=== PATIENT | female | born 2000 | race Two or more races ===

== ENCOUNTER 2018-04-21 06:36 | Inpatient (IN) | payer SELFPAY ==
[~2018-04-21] VITALS: Ht 165.1 cm; Wt 94.0 kg
[2018-04-21] MEDS ORDERED: SODIUM CHLORIDE 0.9% 1,000 ML IVB ONE (07:42)
[2018-04-21] MEDS ORDERED: METOCLOPRAMIDE HCL 5MG/ml INJ 2ml VIAL IV ONE (07:45)
[2018-04-21] MEDS ORDERED: KETOROLAC TROMETH 30 MG/ML 1ML VIAL IV ONE (07:45)
[2018-04-21 07:53] LABS: Basophils # (auto) 0 uL; Basophils % (auto) 0.3 % (0.0-2.0); Eosinophils # (auto) 0 uL; Eosinophils % (auto) 0.1 % (0.0-7.0); Hematocrit 41.8 % (36.0-46.0); Hemoglobin 14.1 g/dL (12.2-16.2); Lymphocytes # (auto) 1.4 uL; Lymphocytes % (auto) 9.4 % (10.0-50.0); Mean Corpuscular Hemoglobin 29.5 pg (28.0-32.0); Mean Corpuscular Hgb Conc. 33.6 g/dL (32.0-36.0); Mean Corpuscular Volume 87.8 fL (80.0-100.0); Monocytes # (auto) 0.6 uL; Monocytes % (auto) 4.4 % (0.0-12.0); Neutrophils # (auto) 12.4 uL; Neutrophils % (auto) 85.8 % (37.0-80.0); Platelet Count (auto) 296 10^3/uL (140-450); Red Blood Cells 4.76 10^6/uL (4.0-5.20); Red Cell Distribution Width 13.5 % (11.8-14.3); White Blood Cell 14.5 10^3/uL (4.4-10.8)
[2018-04-21 08:07] LABS: Alanine Aminotransferase 18 U/L (13-56); Albumin 3.9 g/dL (3.4-5.0); Anion Gap 8 (5-15); Blood Urea Nitrogen 10 mg/dL (7-18); Calcium 9.1 mg/dL (8.5-10.1); Carbon Dioxide 22 mmol/L (21-32); Chloride 108 mmol/L (98-107); Glucose 142 mg/dL (74-106); Potassium 3.2 mmol/L (3.5-5.1); Sodium 138 mmol/L (136-145)
[2018-04-21 08:10] LABS: Alkaline Phosphatase 88 U/L (45-117); Aspartate Aminotransferase 11 U/L (15-37); BUN/Creatinine Ratio 10.4; Bilirubin, Total 0.7 mg/dL (0.2-1.0); GFR African American > 60 mL/min; GFR Non-African American > 60 mL/min
[2018-04-21 10:28] LABS: Urine Bacteria NONE SEEN /hpf (None Seen); Urine Blood 3+ /uL (Negative); Urine Mucus FEW (None Seen); Urine WBC 92 /hpf (0 - 5)
[2018-04-21] MEDS ORDERED: cefTRIAXone 1GM/50ML D5W 50 ML IV ONE (10:45)
[2018-04-21] MEDS ORDERED: POTASSIUM EFFERVESENT TAB 25 MEQ PO ONE (12:45)
[2018-04-21] MEDS ORDERED: MORPHINE SULFATE 10 MG/ML INJ 1ML SDV IV ONE (12:45)
[2018-04-21] MEDS ORDERED: PROMETHAZINE HCL 25 MG/ML 1ML IV ONE (12:45)
[2018-04-21] MEDS ORDERED: LORazepam 0.5 MG TAB PO PRN (14:15)
[2018-04-21] MEDS ORDERED: traMADol HCL 50 MG TAB PO PRN (14:15)
[2018-04-21] MEDS ORDERED: NITROGLYCERIN 0.4 MG SL TAB SL PRN (14:15)
[2018-04-21] MEDS ORDERED: MORPHINE SULFATE 10 MG/ML INJ 1ML SDV IV PRN (14:15)
[2018-04-21] MEDS ORDERED: TEMAZEPAM 15 MG CAP PO PRN (14:15)
[2018-04-21] MEDS: SODIUM CHLORIDE 0.9% 1,000 ML IV SCH (14:21)
[2018-04-21] MEDS: FAMOTIDINE (10MG/ML) 2ML VL IV SCH (14:22)
--- NOTE | 2018-04-21 17:30 | NUR ---
Telemetry admit from [facility] admitted to Telemetry unit after SBAR received. Patient oriented to Katiana Doty RN primary RN, unit, room, bed, and unit policies regarding patient care and visiting hours. Patient now on continuous telemetry monitoring, tele box # [id number] and telemetry reading on arrival to unit is . Patient placed on bedside oxygen, weighed by bedscale and encouraged to call if they need something. All questions and concerns addressed, patient verbalized understanding.
--- NOTE | 2018-04-21 17:45 | NUR ---
COOLING MEASURES DONE.
[2018-04-21] MEDS: ACETAMINOPHEN 500 MG TAB PO PRN (17:48)
[2018-04-21 17:57] VITALS: BP 107/49
--- NOTE | 2018-04-21 19:30 | NUR ---
Opening Shift Note Assumed care of patient, awake and alert. Family member at bedside. No S/S of distress/SOB or pain. Instructed on POC and to call for assist PRN, will continue to monitor for changes Q1hr and PRN. Bed locked and in lowest position. Per report pt running temp, recheck 102.5, cooling measures still continued, Educated pt that ice packs must be maintained due to fever, will be uncomfortable but need to be kept on in order to lower temp. Will continue to monitor temp. Patient currently has temp of 102.0 , cooling measures in place.
[2018-04-21] MEDS: KETOROLAC TROMETH 30 MG/ML 1ML VIAL IV PRN (20:07)
--- NOTE | 2018-04-21 21:46 | NUR ---
PT ROUNDS COOLING MEASURES CONTINUED Applied new cold washcloth on head, will continue to monitor pt.
[2018-04-21 22:00] VITALS: BP 104/48
--- NOTE | 2018-04-21 23:02 | NUR ---
PT ROUNDS Reassess temp Pt temp 99.8 , cooling measures still applied. emptied 1100 ml of urine, yellow, clear will continue to monitor pt.
[2018-04-22] MEDS: SODIUM CHLORIDE 0.9% 1,000 ML IV SCH ×4 (00:03→21:24)
[2018-04-22] MEDS: ACETAMINOPHEN 500 MG TAB PO PRN ×4 (00:05→21:25)
--- NOTE | 2018-04-22 01:40 | NUR ---
PT rounds Cooling Measures applied. Patient currently has temp of 102.8 , cooling measures in place. Reinforced to pt that must keep ice packs in place and to not remove, need to lower temp. No blankets are to be placed on especially thermal ones.
[2018-04-22] MEDS: FAMOTIDINE (10MG/ML) 2ML VL IV SCH ×2 (02:21→13:57)
--- NOTE | 2018-04-22 02:33 | NUR ---
PT ROUNDS Refilled ice packs with new ice, new cold wash cloth placed , will continue to monitor pt.
[2018-04-22 05:30] VITALS: BP 110/56
[2018-04-22] MEDS: PROMETHAZINE HCL 25 MG/ML 1ML IV PRN ×3 (06:27→19:21)
--- NOTE | 2018-04-22 06:35 | NUR ---
PT ROUNDS Cooling Measures applied. Patient currently has temp of 102.2 , cooling measures in place. New washcloths in place and ice packs placed in core areas. Reinforced with pt importance of keeping ice packs and washcloths in place and to avoid covering up. Need to try and lower temp down and with adding blankets and removing ice packs will intervene with lowering temperature. will continue to monitor and endorse to day RN
[2018-04-22 07:16] LABS: Basophils # (auto) 0 uL; Basophils % (auto) 0.1 % (0.0-2.0); Eosinophils # (auto) 0 uL; Hematocrit 37.9 % (36.0-46.0); Hemoglobin 12.4 g/dL (12.2-16.2); Lymphocytes # (auto) 0.5 uL; Lymphocytes % (auto) 2.7 % (10.0-50.0); Mean Corpuscular Hemoglobin 29.3 pg (28.0-32.0); Mean Corpuscular Hgb Conc. 32.7 g/dL (32.0-36.0); Mean Corpuscular Volume 89.7 fL (80.0-100.0); Monocytes # (auto) 0.6 uL; Monocytes % (auto) 2.9 % (0.0-12.0); Neutrophils # (auto) 18.4 uL; Neutrophils % (auto) 94.3 % (37.0-80.0); Platelet Count (auto) 163 10^3/uL (140-450); Red Blood Cells 4.23 10^6/uL (4.0-5.20); Red Cell Distribution Width 13.8 % (11.8-14.3); White Blood Cell 19.5 10^3/uL (4.4-10.8)
--- NOTE | 2018-04-22 07:30 | NUR ---
Opening Shift Note Assumed care of patient, awake and alert. No S/S of distress/SOB or pain. Instructed on POC and to call for assist at all times, will continue to monitor for changes Q1hr and PRN. encourage to increase fluid intake. cooling measures applied. patient is verbalizing of not having that much appetite to eat, educated further on importance of proper nourishment
[2018-04-22 07:40] LABS: Alanine Aminotransferase 14 U/L (13-56); Albumin 2.7 g/dL (3.4-5.0); Anion Gap 11 (5-15); Aspartate Aminotransferase 14 U/L (15-37); BUN/Creatinine Ratio 7.9; Blood Urea Nitrogen 9 mg/dL (7-18); Calcium 7.5 mg/dL (8.5-10.1); Carbon Dioxide 17 mmol/L (21-32); Chloride 108 mmol/L (98-107); Glucose 88 mg/dL (74-106); Potassium 3.3 mmol/L (3.5-5.1); Sodium 136 mmol/L (136-145)
[2018-04-22 07:43] LABS: Alkaline Phosphatase 69 U/L (45-117); Bilirubin, Total 1.2 mg/dL (0.2-1.0); Total Protein 6.6 g/dL (6.4-8.2)
--- NOTE | 2018-04-22 07:45 | NUR ---
cooling measures reinforced. educated patient re: the importance of doing it and she did verbalized understanding
[2018-04-22 07:57] LABS: GFR African American > 60 mL/min; GFR Non-African American > 60 mL/min
--- NOTE | 2018-04-22 09:00 | NUR ---
mother at bedside talking with
[2018-04-22 09:04] VITALS: BP 115/71
[2018-04-22] MEDS: cefTRIAXone 1GM/50ML D5W 50 ML IV SCH (09:31)
--- NOTE | 2018-04-22 10:34 | NUR ---
called and spoke md barron via pbx re: patient still having fever of 102.6 and tylenol [id number] was last given at 0627 and patient also complaining sob from asthma. as per md barron put the orders in for tylenol 500mg [id number], albuterol 25 q6hr and atrovent 0.5 q6hr and he will come to check the patient. Addendum: 04/22/18 at 1125 by Katiana Doty RN RN albuterol 1.25
[2018-04-22] MEDS ORDERED: ACETAMINOPHEN 500 MG TAB PO PRN (10:45)
--- NOTE | 2018-04-22 10:57 | NUR ---
paged rt for the breathing treatment
[2018-04-22] MEDS: IPRATROPIUM BROM 0.5 MG/2.5ML INH SOL NEB SCH ×2 (11:18→19:33)
[2018-04-22] MEDS: ALBUTEROL SULF 2.5 MG/0.5ML(0.5%) NEB SOLN NEB SCH ×2 (11:18→19:33)
--- NOTE | 2018-04-22 12:00 | NUR ---
temp checked 101.6. reinforced fluid intake and cooling measures. will monitor
[2018-04-22 13:00] VITALS: BP 103/52
[2018-04-22] MEDS ORDERED: PROMETHAZINE HCL 25 MG/ML 1ML IM ONE (15:00)
--- NOTE | 2018-04-22 15:00 | NUR ---
md barron at bedside and assessed the patient. poc explained to patient and mom who is at bedside that time. as per md barron to alternate motrin 600mg [id number] with tylenol 500mg q4hr prn but not much on motrin bec it might induce vomiting, to increase fluid to ns 150ml/hr and will ff up on result of urine cs.
[2018-04-22] MEDS: KETOROLAC TROMETH 30 MG/ML 1ML VIAL IV PRN (15:02)
[2018-04-22] MEDS ORDERED: IBUPROFEN 600 MG TAB PO PRN (15:15)
--- NOTE | 2018-04-22 15:27 | NUR ---
CALLED AND SPOKE WITH MD SOW VIA PBX AND INFORMED HIM RE: THE MOTRIN THAT PER PHARMACY TORADOL AND MOTRIN MIGHT INCREASE THE RISK OF BLEEDING. PER MD SOW TO STOP GIVING THE MOTRIN AND GO WITH THE TYLENOL 500MG [id number] FOR THE FEVER AND TORADOL FOR PAIN.
[2018-04-22] MEDS ORDERED: PROMETHAZINE HCL 25 MG/ML 1ML IV ONE (15:30)
[2018-04-22 17:00] VITALS: BP 107/64
--- NOTE | 2018-04-22 19:25 | NUR ---
Opening Shift Note Assumed care of patient, awake and alert. No S/S of distress/SOB or pain. Instructed on POC and to call for assist PRN, will continue to monitor for changes Q1hr and PRN. Temp taken 99.2 oral. Will continue to monitor pt. Cooling measures still applied.
[2018-04-22 21:52] VITALS: BP 103/56
[2018-04-23] MEDS: ALBUTEROL SULF 2.5 MG/0.5ML(0.5%) NEB SOLN NEB SCH ×4 (00:04→19:14)
[2018-04-23] MEDS: IPRATROPIUM BROM 0.5 MG/2.5ML INH SOL NEB SCH ×4 (00:04→19:14)
--- NOTE | 2018-04-23 00:40 | NUR ---
PT ROUNDS MICHEL call pt HR 130s Went to assess pt. pt nauseous was just in the restroom having BM Temp 100.5 Cooling measures still continued, new ice pack applied in core areas, cold damp washcloth placed on forehead will continue to monitor pt.
[2018-04-23] MEDS: PROMETHAZINE HCL 25 MG/ML 1ML IV PRN ×5 (00:45→22:55)
[2018-04-23] MEDS: ACETAMINOPHEN 500 MG TAB PO PRN ×3 (01:34→11:09)
[2018-04-23] MEDS: FAMOTIDINE (10MG/ML) 2ML VL IV SCH ×2 (01:34→15:30)
--- NOTE | 2018-04-23 02:43 | NUR ---
PT Rounds Reassess temp 100.9, Placed new cold damp washcloth on pt's forehead, ice packs still in place in core areas. will continue to monitor pt.
[2018-04-23 03:38] VITALS: BP 103/56
--- NOTE | 2018-04-23 04:30 | NUR ---
PT ROUNDS Cooling Measures applied. Patient currently has temp of 102.0 , cooling measures in place. New ice packs and washcloths provided, instructed pt to not removes ice packs or wash cloths and to not cover herself, will continue to monitor pt
[2018-04-23] MEDS: SODIUM CHLORIDE 0.9% 1,000 ML IV SCH ×3 (04:51→17:55)
[2018-04-23 05:04] VITALS: BP 107/73
--- NOTE | 2018-04-23 06:06 | NUR ---
PT ROUNDS Reassess pt temp 100.8 Cooling Measures applied. Patient currently has temp of 100.8 , cooling measures in place. Will continue to monitor pt. Instructed pt to drink fluids, and to keep ice packs and washcloths on,
[2018-04-23 06:48] LABS: Basophils # (auto) 0 uL; Eosinophils # (auto) 0 uL; Eosinophils % (auto) 0.1 % (0.0-7.0); Hematocrit 33.6 % (36.0-46.0); Hemoglobin 11.2 g/dL (12.2-16.2); Lymphocytes # (auto) 0.6 uL; Lymphocytes % (auto) 3.5 % (10.0-50.0); Mean Corpuscular Hemoglobin 29.6 pg (28.0-32.0); Mean Corpuscular Hgb Conc. 33.3 g/dL (32.0-36.0); Mean Corpuscular Volume 88.9 fL (80.0-100.0); Monocytes # (auto) 0.3 uL; Monocytes % (auto) 1.9 % (0.0-12.0); Neutrophils # (auto) 14.9 uL; Neutrophils % (auto) 94.5 % (37.0-80.0); Platelet Count (auto) 107 10^3/uL (140-450); Red Blood Cells 3.78 10^6/uL (4.0-5.20); Red Cell Distribution Width 13.7 % (11.8-14.3); White Blood Cell 15.7 10^3/uL (4.4-10.8)
--- NOTE | 2018-04-23 07:20 | NUR ---
Opening Shift Note Assumed care of patient, awake and alert. No S/S of distress/SOB. Patient said she has mild flank pain around 3-4/10. Instructed on POC-continue IV antibiotic, fluids, maintain oral hydration, cooling measures, pain management. Patient informed and to call for assist PRN, will continue to monitor for changes Q1hr and PRN.
[2018-04-23 09:00] VITALS: BP 130/72
[2018-04-23] MEDS: cefTRIAXone 1GM/50ML D5W 50 ML IV SCH (09:57)
[2018-04-23] MEDS ORDERED: LEVOFLOXACIN 500MG 100 ML IV ONE (10:30)
[2018-04-23] MEDS: PIPERACILLIN-TAZOB 3.375GM 100 ML IV SCH ×2 (12:25→18:26)
[2018-04-23 13:00] VITALS: BP 140/80
--- NOTE | 2018-04-23 13:50 | NUR ---
Dr. Santiago made aware that patient is still spiking temperature at 102 despite the Tylenol and cooling measures that were given. Per patient's mom, Thais, she is okay for patient to receive Motrin if ordered by MD. Also called pharmacist and verified, both Motrin and Tylenol, per pharmacist, these medications can be given at least 3 hours apart. Will inform next shift RN of this. Dr. Santiago gave an order for Motrin.
[2018-04-23] MEDS: IBUPROFEN 600 MG TAB PO PRN ×2 (15:35→22:54)
[2018-04-23 17:00] VITALS: BP 120/79
--- NOTE | 2018-04-23 19:00 | NUR ---
Closing Note Patient is sitting in bed, patient was able to eat about 20% of her dinner tray and was able to eat pineapple. No complaints of pain at this time and not in distress. Care endorsed to night RN.
--- NOTE | 2018-04-23 19:45 | NUR ---
OPENING NOTES RECEIVED REPORT FROM DAY SHIFT NURSE. PATIENT AWAKE AND ALERT X 4 WITH NO S/S OF DISTRESS NOR PAIN. BED IS LOWEST POSITION WITH BRAKES LOCKED AND SIDE RAILS UP X2. CALL LIGHT IS WITHIN REACH. DISCUSSED POC WITH PATIENT, WILL CONTINUE TO MONITOR.
[2018-04-23 21:48] VITALS: BP 109/61
[2018-04-24] MEDS: PIPERACILLIN-TAZOB 3.375GM 100 ML IV SCH ×4 (00:14→18:22)
[2018-04-24] MEDS: ALBUTEROL SULF 2.5 MG/0.5ML(0.5%) NEB SOLN NEB SCH ×4 (00:14→18:33)
[2018-04-24] MEDS: IPRATROPIUM BROM 0.5 MG/2.5ML INH SOL NEB SCH ×4 (00:14→18:34)
[2018-04-24] MEDS: SODIUM CHLORIDE 0.9% 1,000 ML IV SCH ×4 (00:32→21:30)
[2018-04-24] MEDS: FAMOTIDINE (10MG/ML) 2ML VL IV SCH ×2 (02:22→14:56)
[2018-04-24 05:00] VITALS: BP 117/70
[2018-04-24] MEDS: ACETAMINOPHEN 500 MG TAB PO PRN ×3 (05:07→20:19)
[2018-04-24 06:45] LABS: Basophils # (auto) 0 uL; Basophils % (auto) 0.1 % (0.0-2.0); Eosinophils # (auto) 0.1 uL; Eosinophils % (auto) 0.7 % (0.0-7.0); Hematocrit 28.3 % (36.0-46.0); Hemoglobin 10.1 g/dL (12.2-16.2); Lymphocytes # (auto) 0.5 uL; Lymphocytes % (auto) 6.5 % (10.0-50.0); Mean Corpuscular Hemoglobin 30.5 pg (28.0-32.0); Mean Corpuscular Hgb Conc. 35.8 g/dL (32.0-36.0); Mean Corpuscular Volume 85.3 fL (80.0-100.0); Monocytes # (auto) 0.3 uL; Monocytes % (auto) 3.3 % (0.0-12.0); Neutrophils # (auto) 7.3 uL; Neutrophils % (auto) 89.4 % (37.0-80.0); Platelet Count (auto) 84 10^3/uL (140-450); Red Blood Cells 3.32 10^6/uL (4.0-5.20); Red Cell Distribution Width 13.7 % (11.8-14.3); White Blood Cell 8.2 10^3/uL (4.4-10.8)
[2018-04-24 09:00] VITALS: BP 110/60
--- NOTE | 2018-04-24 09:50 | NUR ---
DR SOW AT BEDSIDE WILL CONTINUE IV LEVAQUIN AND ZOSYN POSSIBLE DISCHARGE TOMORROW
[2018-04-24] MEDS ORDERED: LEVOFLOXACIN 500MG 100 ML IV SCH ×2 (10:00→22:00)
[2018-04-24] MEDS: IBUPROFEN 600 MG TAB PO PRN ×2 (10:55→17:03)
[2018-04-24] MEDS: PROMETHAZINE HCL 25 MG/ML 1ML IV PRN ×2 (11:00→18:08)
[2018-04-24 13:00] VITALS: BP 112/76
[2018-04-24 17:00] VITALS: BP 121/80
--- NOTE | 2018-04-24 19:20 | NUR ---
Opening Shift Note Received report from Jessica YEUNG. Assumed care of patient, awake and alert, ambulating to the hallway. No S/S of distress/SOB or pain. Instructed on POC and to call for assist PRN, will continue to monitor for changes Q1hr and PRN.
[2018-04-24 20:00] VITALS: BP 108/68
[2018-04-24 22:39] VITALS: BP 108/68
[2018-04-25] MEDS: PIPERACILLIN-TAZOB 3.375GM 100 ML IV SCH ×2 (00:03→06:06)
[2018-04-25] MEDS: IBUPROFEN 600 MG TAB PO PRN (00:03)
[2018-04-25] MEDS: ALBUTEROL SULF 2.5 MG/0.5ML(0.5%) NEB SOLN NEB SCH ×3 (00:10→11:25)
[2018-04-25] MEDS: IPRATROPIUM BROM 0.5 MG/2.5ML INH SOL NEB SCH ×3 (00:10→11:25)
[2018-04-25] MEDS: PROMETHAZINE HCL 25 MG/ML 1ML IV PRN (02:24)
[2018-04-25] MEDS: FAMOTIDINE (10MG/ML) 2ML VL IV SCH (02:24)
[2018-04-25] MEDS: SODIUM CHLORIDE 0.9% 1,000 ML IV SCH ×2 (03:21→09:55)
--- NOTE | 2018-04-25 04:35 | NUR ---
Patient is having profuse nasal bleeding. Per patient it is a usual occurrence for her since childhood especially during winter and when her nose dries up. Patient also states that her PCP is aware of her nose bleeding and was advice to just put Vaseline. Vitals are 98.2 111 18 98% 112/67 no pain. Placed ice pack on the nose to stop bleeding. Will continue to monitor.
[2018-04-25 05:45] VITALS: BP 112/67
--- NOTE | 2018-04-25 06:47 | NUR ---
Paged hospitalist to inform re: profuse nose bleeding. Awaiting for call back.
--- NOTE | 2018-04-25 06:56 | NUR ---
Bleeding on the R nostril stopped and on the L nostril lessened. Hospitalist Maria Luz Guzmán PEGGER DOBBY LOOMS called back and states to continue to monitor.
--- NOTE | 2018-04-25 07:30 | NUR ---
PT IS ALERT ORIENTED X4, RESTING IN BED COMFORTABLY, LEANING FORWARD WITH A LEFT NOSTRIL NOSE BLEEDING, BLOOD CLOTS NOTED, ENCOURAGE PT TO KEEP A PINCH PRESSURE OF HER NOSE, EXPLAIN TO PT WHY, PT VERBALIS UNDERSTANDING.
--- NOTE | 2018-04-25 07:38 | NUR ---
Care endorsed to Bernadette YEUNG.
--- NOTE | 2018-04-25 08:00 | NUR ---
NOSE PACKING A SMALL 2X2 DRESSING APPLIED INSIDE PT LEFT NOSE AFTER SATURATED DAMPED WITH NS, PT TOLERATED WELL.
--- NOTE | 2018-04-25 08:30 | NUR ---
NO NOSE BLEEDING NOTED, CONTINUE MONITORING.
[2018-04-25 09:00] VITALS: BP 118/63
--- NOTE | 2018-04-25 09:30 | NUR ---
DR SOW AT BED SIDE WITH DISCHARGE HOME INSTRUCTION, PT VERBALIS UNDERSTANDING, PT FATHER AWARE AT BED SIDE
--- NOTE | 2018-04-25 10:50 | NUR ---
ALL DISCHARGE INSTRUCTION GIVEN TO PT VERBALIS UNDERSTANDING, PT FATHER AWARE AT BED SIDE.
[2018-04-25] MEDS: ACETAMINOPHEN 500 MG TAB PO PRN (11:02)
--- NOTE | 2018-04-25 12:06 | NUR ---
Discharge instructions given as ordered. Encourage to follow up with PMD as instructed. All questions and concerns addressed. Patient verbalized understanding. Medication reconciliation form completed and copy given to patient. . IV removed with catheter intact, pressure dressing applied,. Telemetry unit returned to ICU. Patient taken to vehicle via wheelchair with all personal belongings, accompanied by staff and family member. No distress noted at time of departure.
== END 2018-04-25 12:06 | disposition home or self-care (01) | DRG 872 ==
LOC: ER 06:42 → TELE 14:06 → TELE-EAST 17:22
PROVIDERS: ADMIT Internal Medicine; ATTEND Family Medicine
DX: A41.9 Sepsis, unspecified organism (principal); N13.6 Pyonephrosis; E86.0 Dehydration; E87.6 Hypokalemia; J45.909 Unspecified asthma, uncomplicated; R04.0 Epistaxis; Z82.5 Family history of asthma and other chronic lower respiratory diseases; Z83.3 Family history of diabetes mellitus
CPT/HCPCS: 36415; 74176; 76775; 80053; 81001; 81025; 84702; 85025; 87040; 87086; 87088; 87186; 94640; 96361; 96365; 96375; G0378; J0696; J1885; J1956; J2543; J3490

== ENCOUNTER 2024-01-28 06:37 | Emergency (ER) | payer MEDICAID, OTHER ==
[~2024-01-28] VITALS: Ht 165.1 cm; Wt 112.7 kg
[2024-01-28 06:43] VITALS: BP 131/76; PULSE 63; RESP 18; TEMP 98.2; O2SAT 98
[2024-01-28 12:07] LABS: Hepatitis B Surface Antibody Negative (Negative)
[2024-01-28 12:18] LABS: Hepatitis B Surface Antigen Negative (Negative)
== END 2024-01-28 07:48 | disposition home or self-care (01) ==
LOC: ER 06:37
DX: J45.909 Unspecified asthma, uncomplicated (principal); Z77.21 Contact with and (suspected) exposure to potentially hazardous body fluids
CPT/HCPCS: 36415; 86703; 86706; 86803; 87340